=== PATIENT | male | born 1960 | race Caucasian/White ===

== ENCOUNTER 2018-04-15 05:32 | Inpatient (IN) | payer BC, OTHER ==
[2018-04-07 08:50] LABS: HEMATOCRIT 37.6 % (42.0-52.0); HEMOGLOBIN 12.8 gm/dL (14.0-18.0); MCH 28.9 pg (26.0-34.0); RBC 4.42 mil/uL (4.50-6.00); RDW 13.8 % (10.5-14.5); WBC 6.3 thou/uL (4.0-11.0)
[2018-04-07 09:00] LABS: URINE BILIRUBIN NEGATIVE (Negative); URINE BLOOD NEGATIVE (Negative); URINE CLARITY CLEAR; URINE COLOR YELLOW; URINE GLUCOSE-RANDOM* NEGATIVE (Negative); URINE KETONES NEGATIVE (Negative); URINE LEUKOCYTES-REFLEX NEGATIVE (Negative); URINE NITRITE-REFLEX NEGATIVE (Negative); URINE PROTEIN (DIPSTICK) NEGATIVE (Negative); URINE SPECIFIC GRAVITY <= 1.005 (1.005-1.035); URINE UROBILINOGEN 0.2 E.U./dl (0.2-1.0)
[2018-04-07 09:03] LABS: PROTIME 10.3 Seconds (9.3-11.4)
[2018-04-07 09:04] LABS: ALBUMIN 3.8 g/dL (3.4-5.0); CALCIUM 9.3 mg/dL (8.5-10.1); CREATININE 1.2 mg/dL (0.7-1.3); TOTAL BILIRUBIN 0.5 mg/dL (<0.1-1.0); TOTAL PROTEIN 7.1 g/dL (6.4-8.2)
[~2018-04-15] VITALS: Ht 170.2 cm; Wt 120.7 kg
--- NOTE | ~2018-04-15 | O ---
[facility] [place] [address] OPERATIVE REPORT Name: JAMIA MASTERSON Room #: 150-5 [facility] IN ..#: [id number] Admission: 04/15/18 Attend Phys: Isaac Mcclellan MD Discharge: Date of : 64 Report #: [id number] THIS REPORT FOR: //name// CC: Isaac Lipscomb DATE OF SERVICE: 04/15/2018 PREOPERATIVE DIAGNOSIS: End-stage degenerative osteoarthritis, left knee with flexion contracture. POSTOPERATIVE DIAGNOSIS: End-stage degenerative osteoarthritis, left knee with flexion contracture. PROCEDURE: Left total knee arthroplasty. SURGEON: Isaac Mcclellan MD INDICATIONS: This heavy 58-year-old gentleman has difficulty with chronic pain syndrome and chronic anxiety disorder and has been on chronic medications for many years. 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 He has had previous surgery for reconstruction of the patellofemoral compartment many years ago. He now has about a 15-degree flexion contracture and limited flexion with moderate generalized knee discomfort. He has discussed treatment options and has elected to go ahead with total knee replacement. He understands he may have difficulty with his recovery given his preexisting deformity and old surgery combined with his chronic problems with pain management and anxiety. DESCRIPTION OF PROCEDURE: The patient was taken to the operating room where he was placed under general anesthesia. Prophylactic intravenous antibiotics were administered. The left leg and knee were meticulously prepped and draped and a thigh tourniquet applied and inflated to 300 mmHg. A skin incision was made through his old surgical scar which is more of a medial curved parapatellar incision. I was concerned that my standard straight anterior incision would leave a very narrow bridge between the old scar and the new incision possibly resulting in some vascular insufficiency. The more medial incision was extended through subcutaneous tissues and then along the medial retinaculum, reflecting the patella laterally. Marked degenerative change in all 3 compartments was noted. The intramedullary guide was used and the [employer] and [employer] knee system was utilized. The femur was cut in 5 degrees of valgus and the tibia cut perpendicular to the long axis of the bone. Sufficient bone was resected to correct his preoperative flexion contracture of about 15 degrees. The femur was best suited for a size 5 left femoral component. The tibia seemed best suited for a size 4 tibial baseplate. A trial reduction was performed and his knee was best suited for a size 12 mm polyethylene insert. This resulted in satisfactory [address] [address] OPERATIVE REPORT Name: ZELALEMJAMIA Room #: 150-5 [facility] IN [facility]#: [id number] Admission: 04/15/18 Attend Phys: Isaac Mcclellan MD Discharge: Date of : 64 Report #: [id number] stability and allowed full knee extension and flexion beyond 130 degrees. The patellar surface was resected and a 38 mm patellar button seemed to fit nicely. Appropriate anchor holes were created. The surfaces were thoroughly irrigated and dried. The intramedullary canal was blocked with a bone block on both the femoral and tibial sides. Methyl methacrylate cement was mixed and injected into the porous surface of the tibia. The [employer]hew size 4 tibial base plate was then inserted, positioning this in appropriate alignment and rotation. It was impacted into position and excess cement was removed around its margin. A 12 mm polyethylene cruciate retaining insert was then applied. This was snapped into position and seated nicely and appeared to be secure. The press-fit noncemented size 5 left femoral component was impacted on to the distal femur. It seated nicely and appeared to be secure. A 38 mm patellar button was cemented into place and secured with a patellar clamp as the cement hardened. All excess cement was removed from around its margin. Once the cement was firm, range of motion, alignment and stability were once again assessed and felt to be satisfactory. The knee demonstrates full knee extension and flexion beyond 130 degrees with satisfactory stability. The patella seems to track nicely. The tourniquet was deflated after a total tourniquet time of 65 minutes. Good hemostasis was confirmed. A single Hemovac was placed exiting through a lateral stab incision. The fascia was then closed with multiple #1 Vicryl sutures. The subcutaneous tissues were closed with 0 Monocryl. The skin was closed with skin dwaine. Sterile dressing was applied. The patient was awakened and returned to recovery room in good condition. <ELECTRONICALLY SIGNED> By: Isaac Mcclellan MD 04/15/18 [id number] Isaac Mcclellan MD /nt
[~2018-04-15 05:32] MED LIST: ALPRAZOLAM1 MG PO; COZAAR100 MG PO; ESCITALOPRAM OX20 MG PO; GABITRIL12 MG PO; NEURONTIN 300300 M1 PO; OMEPRAZOLE 20 M20 M1 PO; REMERON 30 MG T30 M1 PO; SUBOXONE 8 MG-1 EAC3 SUBLING; VITAMIN D2000 UNIT PO; ZANAFLEX4 MG PO
[2018-04-15 09:31] VITALS: BP 133/75
[2018-04-15 20:30] VITALS: BP 145/103
[2018-04-16 00:11] VITALS: BP 110/61
[2018-04-16 03:57] VITALS: BP 128/75
[2018-04-16 06:04] LABS: ABSOLUTE NEUTROPHILS 7.4 thou/uL (1.4-8.2); BASOPHILS 0.5 % (0.0-2.0); HEMATOCRIT 28.4 % (42.0-52.0); HEMOGLOBIN 10.2 gm/dL (14.0-18.0); LYMPHOCYTES 7.7 % (24.0-44.0); MCH 30.3 pg (26.0-34.0); MCHC 35.9 g/dL (28.0-37.0); MCV 84.6 fL (80.0-100.0); MONOCYTES 10.7 % (1.0-8.0); PLATELET COUNT 171 thou/uL (150-400); POLYS 81.1 % (36.0-66.0); RBC 3.36 mil/uL (4.50-6.00); WBC 9.2 thou/uL (4.0-11.0)
[2018-04-16 06:29] LABS: CALCIUM 8.4 mg/dL (8.5-10.1); CREATININE 1.2 mg/dL (0.7-1.3); MAGNESIUM 1.7 mg/dL (1.8-2.4); POTASSIUM 4.3 mmol/L (3.5-5.1)
[2018-04-16 09:00] VITALS: BP 134/75
[2018-04-16 11:46] VITALS: BP 134/75
[2018-04-16 17:36] VITALS: BP 102/49
[2018-04-16 19:47] VITALS: BP 137/70
[2018-04-17 05:29] VITALS: BP 123/66
[2018-04-17 06:01] LABS: HEMATOCRIT 25.1 % (42.0-52.0); HEMOGLOBIN 8.9 gm/dL (14.0-18.0); MCH 30.2 pg (26.0-34.0); MCHC 35.3 g/dL (28.0-37.0); MCV 85.5 fL (80.0-100.0); RBC 2.94 mil/uL (4.50-6.00); RDW 14.1 % (10.5-14.5); WBC 7.8 thou/uL (4.0-11.0)
[2018-04-17 07:35] VITALS: BP 91/45
[2018-04-17 10:51] VITALS: BP 91/45
[2018-04-17 19:40] VITALS: BP 114/63
[2018-04-18 05:21] LABS: HEMATOCRIT 24.1 % (42.0-52.0); HEMOGLOBIN 8.4 gm/dL (14.0-18.0); MCH 29.9 pg (26.0-34.0); MCHC 34.6 g/dL (28.0-37.0); MCV 86.3 fL (80.0-100.0); RBC 2.8 mil/uL (4.50-6.00); RDW 14.3 % (10.5-14.5); WBC 6.1 thou/uL (4.0-11.0)
[2018-04-18 08:35] VITALS: BP 113/56
[2018-04-18 16:34] VITALS: BP 106/56
[2018-04-18 19:50] VITALS: BP 147/70
[2018-04-19 05:06] VITALS: BP 121/87
[2018-04-19 06:26] LABS: HEMATOCRIT 22.9 % (42.0-52.0); HEMOGLOBIN 8.1 gm/dL (14.0-18.0); MCH 30.2 pg (26.0-34.0); MCHC 35.3 g/dL (28.0-37.0); MCV 85.7 fL (80.0-100.0); RBC 2.67 mil/uL (4.50-6.00); WBC 6.1 thou/uL (4.0-11.0)
[2018-04-19 08:00] VITALS: BP 91/57
[2018-04-20 00:32] VITALS: BP 106/58
[2018-04-20 07:10] VITALS: BP 97/61
[2018-04-20 09:51] LABS: HEMATOCRIT 24.6 % (42.0-52.0); HEMOGLOBIN 8.6 gm/dL (14.0-18.0); MCH 30.1 pg (26.0-34.0); MCHC 35.1 g/dL (28.0-37.0); RBC 2.86 mil/uL (4.50-6.00); RDW 14.1 % (10.5-14.5); WBC 5.3 thou/uL (4.0-11.0)
[2018-04-20 09:59] LABS: CALCIUM 8.9 mg/dL (8.5-10.1); CREATININE 1.3 mg/dL (0.7-1.3); MAGNESIUM 2.1 mg/dL (1.8-2.4); POTASSIUM 3.8 mmol/L (3.5-5.1)
[2018-04-20 14:18] VITALS: BP 120/52
[2018-04-20 19:25] VITALS: BP 99/58
[2018-04-21 19:36] VITALS: BP 118/62
[2018-04-22 07:15] LABS: HEMATOCRIT 23.4 % (42.0-52.0); HEMOGLOBIN 8.1 gm/dL (14.0-18.0); MCH 29.7 pg (26.0-34.0); MCHC 34.8 g/dL (28.0-37.0); MCV 85.3 fL (80.0-100.0); RBC 2.74 mil/uL (4.50-6.00); RDW 13.8 % (10.5-14.5); WBC 5.8 thou/uL (4.0-11.0)
[2018-04-22 07:22] LABS: CALCIUM 9.2 mg/dL (8.5-10.1); CREATININE 1.2 mg/dL (0.7-1.3); POTASSIUM 4.1 mmol/L (3.5-5.1)
[2018-04-22 08:39] VITALS: BP 129/82
[2018-04-22 20:04] VITALS: BP 122/59
[2018-04-23 08:27] VITALS: BP 84/50
== END 2018-04-23 14:37 | DRG 470 ==
LOC: TBA 05:32 → PRE 05:32 → 4E 15:30 → SICU 04-19 18:13
PROVIDERS: Hospitalist; Internal Medicine; Nurse Practitioner; Orthopaedic Surgery
PROC: 0SRD0J9 Replacement of Left Knee Joint with Synthetic Substitute, Cemented, Open Approach (ICD-10-PCS; principal; 2018-04-15)
DX: M17.12 Unilateral primary osteoarthritis, left knee (principal); M24.562 Contracture, left knee; G47.33 Obstructive sleep apnea (adult) (pediatric); K21.9 Gastro-esophageal reflux disease without esophagitis; F41.9 Anxiety disorder, unspecified; G89.29 Other chronic pain; M54.9 Dorsalgia, unspecified; F32.9 Major depressive disorder, single episode, unspecified; F40.01 Agoraphobia with panic disorder; D69.6 Thrombocytopenia, unspecified; D64.9 Anemia, unspecified; I10 Essential (primary) hypertension; K59.00 Constipation, unspecified; T50.905A Adverse effect of unspecified drugs, medicaments and biological substances, initial encounter; Z88.0 Allergy status to penicillin; Z79.899 Other long term (current) drug therapy; Z87.891 Personal history of nicotine dependence
CPT/HCPCS: 10783; 15002; 50010; 50101; 50415; 50954; 51130; 51225; 51412; 51771; 53364; 56525; 57095; 62110; 62900; 64039; 70005